=== PATIENT | male | born 1935 | race Caucasian/White ===

== ENCOUNTER 2016-11-15 11:14 | Outpatient (CLI) | payer MEDICARE, BC ==
[2014-08-22 22:51] VITALS: O2SAT 98
== END 2016-11-15 11:15 | disposition home or self-care (01) | DRG 554 ==
LOC: CONVCARE 11:14
PROVIDERS: ATTEND Orthopaedic Surgery
DX: M17.0 Bilateral primary osteoarthritis of knee (principal); M21.161 Varus deformity, not elsewhere classified, right knee; M21.162 Varus deformity, not elsewhere classified, left knee
CPT/HCPCS: 73560

== ENCOUNTER 2016-12-16 05:38 | Inpatient (IN) | payer MEDICARE, BC ==
[2016-12-16] MEDS ORDERED: LACTATED RINGERS 1,000 ML IV ONE (06:00)
[2016-12-16] MEDS: SCOPOLAMINE 1.5MG PATCH TD SCH (06:27)
[2016-12-16] MEDS ORDERED: SODIUM CHLORIDE 20 ML 20 ML ONE (06:53)
[2016-12-16] MEDS ORDERED: LACTATED RINGERS 1,000 ML IV SCH (07:00)
[2016-12-16] MEDS ORDERED: TETRACAINE HCL 1% SOL ONE (07:16)
[2016-12-16] MEDS ORDERED: KETAMINE HYDROCHLORIDE 50 MG/ML SOL ONE (07:19)
[2016-12-16] MEDS ORDERED: HYDROMORPHONE HCL 2 MG/ML 1 ML SOL ONE (07:19)
[2016-12-16] MEDS ORDERED: PROPOFOL 500 MG/50 ML EMU IV ONE ×3 (07:19→09:59)
[2016-12-16] MEDS ORDERED: METOCLOPRAMIDE HYDROCHLORIDE 5 MG/ML SOL ONE (07:19)
[2016-12-16] MEDS ORDERED: MIDAZOLAM 2 MG/2 ML SOL ONE (07:19)
[2016-12-16] MEDS ORDERED: DEXAMETHASONE 20 MG/5 ML (4 MG/ML SOL) ONE (07:19)
[2016-12-16] MEDS ORDERED: ONDANSETRON HCL 4 MG/2 ML SOL ONE (07:19)
[2016-12-16] MEDS ORDERED: LIDOCAINE HCL 1% MPF SOL ONE (07:19)
[2016-12-16] MEDS ORDERED: CEFAZOLIN SODIUM 1 GM PDS ONE (07:40)
[2016-12-16] MEDS ORDERED: PHENYLEPHRINE HYDROCHLORIDE 10 MG/ML SOL ONE (08:56)
[2016-12-16] MEDS: BUPIVACAINE LIPOSOME 20 ML SUS ONE ×4 (09:30→11:05)
[2016-12-16] MEDS ORDERED: FENTANYL CITRATE 50 MCG/ML SOL ONE (10:00)
[2016-12-16] MEDS ORDERED: LABETALOL HYDROCHLORIDE 5 MG/ML SOL IV ONE (10:21)
[2016-12-16] MEDS: TRANEXAMIC ACID 100 MG/ML SOL ONE ×2 (10:25→11:22)
[2016-12-16] MEDS ORDERED: BISACODYL 10 MG SUP PR PRN (11:18)
[2016-12-16] MEDS ORDERED: ONDANSETRON HCL 4 MG/2 ML SOL IV PRN (11:18)
[2016-12-16] MEDS ORDERED: MORPHINE SULFATE 10 MG/ML SOL IM PRN (11:18)
[2016-12-16] MEDS ORDERED: ONDANSETRON 4 MG ODT BU PRN (11:18)
[2016-12-16] MEDS ORDERED: DIAZEPAM 5 MG TAB PO PRN (11:18)
[2016-12-16] MEDS ORDERED: SODIUM CHLORIDE 0.9% 500 ML 500 ML IV PRN (11:18)
[2016-12-16] MEDS ORDERED: ALUMINUM/MAGNESIUM 30 ML SUS PO PRN (11:18)
[2016-12-16] MEDS ORDERED: DIPHENHYDRAMINE 50 MG/ML SOL IV PRN (11:18)
[2016-12-16] MEDS ORDERED: HYDROMORPHONE HCL 2 MG/ML 1 ML SOL IV PRN (11:18)
[2016-12-16] MEDS ORDERED: FLEET ENEMA PR PRN (11:18)
[2016-12-16] MEDS ORDERED: PROPOFOL 10 MG/ML EMU IV ONE (12:07)
[2016-12-16] MEDS ORDERED: KETOROLAC TROMETHAMINE 30 MG/ML SOL ONE (12:18)
[2016-12-16] MEDS ORDERED: DEMEROL ONE (12:20)
[2016-12-16] MEDS: SODIUM CHLORIDE 0.9% FLUSH 10 ML SOL IV SCH ×2 (15:17→19:54)
[2016-12-16] MEDS: CEFAZOLIN (PREMIX) 1 GM SOL IV SCH (16:00)
[2016-12-16] MEDS ORDERED: CEFAZOLIN 1 GM IV SCH ×2 (16:00→16:30)
[2016-12-16] MEDS: DEXTROSE/SALINE 0.45% 1,000 ML IV SCH (19:52)
[2016-12-16] MEDS: SENNOSIDES A AND B 8.6 MG TAB PO SCH (20:18)
[2016-12-16] MEDS: APAP/HYDROCODONE 325/5 TAB PO PRN (23:08)
[2016-12-17] MEDS: CEFAZOLIN (PREMIX) 1 GM SOL IV SCH (00:22)
[2016-12-17] MEDS: SODIUM CHLORIDE 0.9% FLUSH 10 ML SOL IV SCH ×3 (03:10→20:32)
[2016-12-17] MEDS: APAP/HYDROCODONE 325/5 TAB PO PRN ×5 (04:08→20:39)
[2016-12-17] MEDS: DEXTROSE/SALINE 0.45% 1,000 ML IV SCH ×2 (06:24→21:42)
[2016-12-17] MEDS: LEVOTHYROXINE SODIUM 50 MCG TAB PO SCH (06:26)
[2016-12-17 07:17] LABS: MEAN CORPUSCULAR HGB CONC 35.3 gm/dl (32.0-36.0)
[2016-12-17] MEDS: GABAPENTIN 300 MG CAP PO SCH (08:52)
[2016-12-17] MEDS: CYANOCOBALAMIN 1000 MCG TAB PO SCH (08:53)
[2016-12-17] MEDS: ASCORBIC ACID 500 MG TAB PO SCH (08:53)
[2016-12-17] MEDS: ZINC 50 MG PO SCH (08:54)
[2016-12-17] MEDS: RIVAROXABAN 10 MG TAB PO SCH (08:54)
[2016-12-17] MEDS ORDERED: FUROSEMIDE 20mg SOL IV SCH (12:00)
[2016-12-17] MEDS: SENNOSIDES A AND B 8.6 MG TAB PO SCH (20:32)
[2016-12-18] MEDS: LEVOTHYROXINE SODIUM 50 MCG TAB PO SCH ×2 (06:39→06:57)
[2016-12-18] MEDS: SODIUM CHLORIDE 0.9% FLUSH 10 ML SOL IV SCH ×2 (06:40→18:30)
[2016-12-18] MEDS: APAP/HYDROCODONE 325/5 TAB PO PRN ×5 (06:42→21:21)
[2016-12-18 07:32] LABS: MEAN CORPUSCULAR HGB CONC 35.5 gm/dl (32.0-36.0)
[2016-12-18] MEDS: CYANOCOBALAMIN 1000 MCG TAB PO SCH (09:09)
[2016-12-18] MEDS: ASCORBIC ACID 500 MG TAB PO SCH (09:09)
[2016-12-18] MEDS: GABAPENTIN 300 MG CAP PO SCH (09:09)
[2016-12-18] MEDS: RIVAROXABAN 10 MG TAB PO SCH (09:10)
[2016-12-18] MEDS: ZINC 50 MG PO SCH (09:10)
[2016-12-18] MEDS: SODIUM CHLORIDE 0.9% FLUSH 10 ML SOL IV PRN (17:39)
[2016-12-18] MEDS: SENNOSIDES A AND B 8.6 MG TAB PO SCH (21:21)
[2016-12-19] MEDS: APAP/HYDROCODONE 325/5 TAB PO PRN ×6 (02:47→22:31)
[2016-12-19 07:17] LABS: MEAN CORPUSCULAR HGB CONC 34.9 gm/dl (32.0-36.0)
[2016-12-19] MEDS: SCOPOLAMINE 1.5MG PATCH TD SCH (07:19)
[2016-12-19] MEDS: LEVOTHYROXINE SODIUM 50 MCG TAB PO SCH (07:20)
[2016-12-19 08:00] LABS: POTASSIUM 4.2 mMol/L (3.5-5.1)
[2016-12-19] MEDS: SODIUM CHLORIDE 0.9% FLUSH 10 ML SOL IV SCH ×3 (08:33→18:30)
[2016-12-19] MEDS: ZINC 50 MG PO SCH (08:34)
[2016-12-19] MEDS: ASCORBIC ACID 500 MG TAB PO SCH (08:34)
[2016-12-19] MEDS: CYANOCOBALAMIN 1000 MCG TAB PO SCH (08:34)
[2016-12-19] MEDS: RIVAROXABAN 10 MG TAB PO SCH (08:34)
[2016-12-19] MEDS: GABAPENTIN 300 MG CAP PO SCH (08:34)
[2016-12-19] MEDS: MAGNESIUM HYDROXIDE 30 ML SUS PO PRN (08:37)
[2016-12-19 11:57] LABS: ABO O; ANTIBODY SCREEN Negative; RH TYPE Positive
[2016-12-19 11:58] LABS: UNIT TYPE O POSITIVE
[2016-12-19] MEDS: FUROSEMIDE 20mg SOL IV SCH ×2 (15:21→18:31)
[2016-12-19] MEDS: SODIUM CHLORIDE 0.9% FLUSH 10 ML SOL IV PRN (15:21)
[2016-12-19] MEDS: SENNOSIDES A AND B 8.6 MG TAB PO SCH (20:39)
[2016-12-20] MEDS: APAP/HYDROCODONE 325/5 TAB PO PRN ×3 (02:32→08:29)
[2016-12-20] MEDS: SODIUM CHLORIDE 0.9% FLUSH 10 ML SOL IV SCH ×2 (02:33→08:35)
[2016-12-20] MEDS: LEVOTHYROXINE SODIUM 50 MCG TAB PO SCH (07:09)
[2016-12-20 07:22] LABS: BASOPHILS % (AUTO) 1 % (0-3); EOSINOPHILS % (AUTO) 6 % (0-9); HEMATOCRIT 27 % (39-53); MEAN CORPUSCULAR VOLUME 87 fL (80-100); MONOCYTES % (AUTO) 10.3 % (0-12); NEUTROPHILS % (AUTO) 67.4 % (37-80)
[2016-12-20 07:23] LABS: POTASSIUM 4.1 mMol/L (3.5-5.1)
[2016-12-20] MEDS: CYANOCOBALAMIN 1000 MCG TAB PO SCH (08:29)
[2016-12-20] MEDS: GABAPENTIN 300 MG CAP PO SCH (08:29)
[2016-12-20] MEDS: MAGNESIUM HYDROXIDE 30 ML SUS PO PRN (08:29)
[2016-12-20] MEDS: RIVAROXABAN 10 MG TAB PO SCH (08:30)
[2016-12-20] MEDS: ZINC 50 MG PO SCH (08:30)
[2016-12-20] MEDS: ASCORBIC ACID 500 MG TAB PO SCH (08:31)
[2016-12-20 09:08] VITALS: BP 135/66; PULSE 81; RESP 19; TEMP 98.1; O2SAT 94
[2016-12-20] MEDS ORDERED: PATIENT EDUCATION 1 MISC PRN (09:28)
== END 2016-12-20 09:05 | disposition swing bed (61) | DRG 462 ==
LOC: ACUTE CARE 05:38
PROVIDERS: ADMIT Orthopaedic Surgery; ATTEND Orthopaedic Surgery
PROC: 0SRC0J9 Replacement of Right Knee Joint with Synthetic Substitute, Cemented, Open Approach (ICD-10-PCS; 2016-12-16)
PROC: 0SRD0J9 Replacement of Left Knee Joint with Synthetic Substitute, Cemented, Open Approach (ICD-10-PCS; principal; 2016-12-16 08:00)
PROC: 30233N1 Transfusion of Nonautologous Red Blood Cells into Peripheral Vein, Percutaneous Approach (ICD-10-PCS; 2016-12-17)
PROC: F01ZDZZ Gait and/or Balance Assessment (ICD-10-PCS; 2016-12-17)
PROC: F01ZCZZ Transfer Assessment (ICD-10-PCS; 2016-12-17)
PROC: F01ZBZZ Bed Mobility Assessment (ICD-10-PCS; 2016-12-17)
PROC: F07Z9FZ Gait Training/Functional Ambulation Treatment using Assistive, Adaptive, Supportive or Protective Equipment (ICD-10-PCS; 2016-12-17)
PROC: F07L6FZ Therapeutic Exercise Treatment of Musculoskeletal System - Lower Back / Lower Extremity using Assistive, Adaptive, Supportive or Protective Equipment (ICD-10-PCS; 2016-12-17)
PROC: 30233N1 Transfusion of Nonautologous Red Blood Cells into Peripheral Vein, Percutaneous Approach (ICD-10-PCS; 2016-12-19)
DX: M17.0 Bilateral primary osteoarthritis of knee (principal); D62 Acute posthemorrhagic anemia; Z96.653 Presence of artificial knee joint, bilateral; E03.9 Hypothyroidism, unspecified; G25.81 Restless legs syndrome; R09.02 Hypoxemia; R33.9 Retention of urine, unspecified
CPT/HCPCS: 36415; 51798; 73560; 80048; 85025; 85027; 86850; 86900; 86901; 86920; 93005; 93012; 94150; 99070; J0690; J1100; J1170; J1885; J1940; J2175; J2250; J2405; J2765; J3010; P9016; A6232; A6402; J2001; J2704

== ENCOUNTER 2016-12-20 08:11 | Inpatient (IN) | payer MEDICARE, BC ==
[2016-12-20] MEDS ORDERED: PATIENT EDUCATION 1 MISC PRN (10:00)
[2016-12-20] MEDS ORDERED: INFLUENZA HIGH DOSE VACCINE 0.5 ML SUS IM ONE (10:40)
[2016-12-20] MEDS ORDERED: PNEUMOCOCCAL VACCINE 0.5 ML SOL IM ONE (10:40)
[2016-12-20] MEDS ORDERED: MAGNESIUM HYDROXIDE 30 ML SUS PO PRN (11:24)
[2016-12-20] MEDS ORDERED: ONDANSETRON 4 MG ODT BU PRN (11:24)
[2016-12-20] MEDS: APAP/HYDROCODONE 325/5 TAB PO PRN ×3 (12:09→20:54)
[2016-12-20] MEDS ORDERED: BISACODYL 10 MG SUP PR PRN (15:45)
[2016-12-20] MEDS: SENNOSIDES A AND B 8.6 MG TAB PO SCH (20:50)
[2016-12-20] MEDS: TAMSULOSIN HYDROCHLORIDE 0.4 MG CAP PO SCH (20:51)
[2016-12-20] MEDS ORDERED: TAMSULOSIN HYDROCHLORIDE 0.4 MG CAP PO SCH (21:00)
[2016-12-21] MEDS: APAP/HYDROCODONE 325/5 TAB PO PRN ×4 (02:12→18:18)
[2016-12-21] MEDS: LEVOTHYROXINE SODIUM 50 MCG TAB PO SCH (06:30)
[2016-12-21] MEDS: ZINC 50 MG PO SCH (08:54)
[2016-12-21] MEDS: RIVAROXABAN 10 MG TAB PO SCH (08:54)
[2016-12-21] MEDS: CYANOCOBALAMIN 1000 MCG PO SCH (08:54)
[2016-12-21] MEDS: ASCORBIC ACID 500 MG TAB PO SCH (08:54)
[2016-12-21] MEDS: GABAPENTIN 300 MG CAP PO SCH (08:54)
[2016-12-21] MEDS: SENNOSIDES A AND B 8.6 MG TAB PO SCH (21:39)
[2016-12-21] MEDS: TAMSULOSIN HYDROCHLORIDE 0.4 MG CAP PO SCH (21:39)
[2016-12-22] MEDS: APAP/HYDROCODONE 325/5 TAB PO PRN ×4 (03:05→16:48)
[2016-12-22] MEDS: LEVOTHYROXINE SODIUM 50 MCG TAB PO SCH (06:52)
[2016-12-22] MEDS: CYANOCOBALAMIN 1000 MCG PO SCH (08:24)
[2016-12-22] MEDS: GABAPENTIN 300 MG CAP PO SCH (08:25)
[2016-12-22] MEDS: ASCORBIC ACID 500 MG TAB PO SCH (08:25)
[2016-12-22] MEDS: RIVAROXABAN 10 MG TAB PO SCH (08:25)
[2016-12-22] MEDS: ZINC 50 MG PO SCH (08:26)
[2016-12-22] MEDS: TAMSULOSIN HYDROCHLORIDE 0.4 MG CAP PO SCH (21:01)
[2016-12-22] MEDS: SENNOSIDES A AND B 8.6 MG TAB PO SCH (21:01)
[2016-12-23] MEDS: APAP/HYDROCODONE 325/5 TAB PO PRN ×5 (01:08→23:43)
[2016-12-23] MEDS: LEVOTHYROXINE SODIUM 50 MCG TAB PO SCH (06:28)
[2016-12-23] MEDS: CYANOCOBALAMIN 1000 MCG PO SCH (10:39)
[2016-12-23] MEDS: ASCORBIC ACID 500 MG TAB PO SCH (10:40)
[2016-12-23] MEDS: GABAPENTIN 300 MG CAP PO SCH (10:40)
[2016-12-23] MEDS: ZINC 50 MG PO SCH (10:41)
[2016-12-23] MEDS: RIVAROXABAN 10 MG TAB PO SCH (10:41)
[2016-12-23 13:06] LABS: BASOPHILS % (AUTO) 1 % (0-3); EOSINOPHILS % (AUTO) 2 % (0-9); HEMATOCRIT 28 % (39-53); MEAN CORPUSCULAR HGB CONC 34.9 gm/dl (32.0-36.0); MEAN CORPUSCULAR VOLUME 90 fL (80-100); MONOCYTES % (AUTO) 8.4 % (0-12); NEUTROPHILS % (AUTO) 78.4 % (37-80)
[2016-12-23 13:23] LABS: CALCIUM 8.2 mg/dl (8.5-10.1); GLOM FILT RATE 78 mL/min (>60); POTASSIUM 4.3 mMol/L (3.5-5.1); SODIUM 137 mMol/L (136-145)
[2016-12-23] MEDS: SENNOSIDES A AND B 8.6 MG TAB PO SCH (20:14)
[2016-12-23] MEDS: TAMSULOSIN HYDROCHLORIDE 0.4 MG CAP PO SCH (20:14)
[2016-12-24] MEDS: APAP/HYDROCODONE 325/5 TAB PO PRN ×3 (04:48→21:07)
[2016-12-24] MEDS: LEVOTHYROXINE SODIUM 50 MCG TAB PO SCH (07:17)
[2016-12-24] MEDS: GABAPENTIN 300 MG CAP PO SCH (08:59)
[2016-12-24] MEDS: CYANOCOBALAMIN 1000 MCG PO SCH (08:59)
[2016-12-24] MEDS: ASCORBIC ACID 500 MG TAB PO SCH (09:00)
[2016-12-24] MEDS: ZINC 50 MG PO SCH (09:00)
[2016-12-24] MEDS: RIVAROXABAN 10 MG TAB PO SCH (09:00)
[2016-12-24] MEDS: SENNOSIDES A AND B 8.6 MG TAB PO SCH (21:06)
[2016-12-24] MEDS: TAMSULOSIN HYDROCHLORIDE 0.4 MG CAP PO SCH (21:07)
[2016-12-25] MEDS: LEVOTHYROXINE SODIUM 50 MCG TAB PO SCH (06:30)
[2016-12-25] MEDS: CYANOCOBALAMIN 1000 MCG PO SCH (08:45)
[2016-12-25] MEDS: GABAPENTIN 300 MG CAP PO SCH (08:45)
[2016-12-25] MEDS: RIVAROXABAN 10 MG TAB PO SCH (08:46)
[2016-12-25] MEDS: ASCORBIC ACID 500 MG TAB PO SCH (08:46)
[2016-12-25] MEDS: ZINC 50 MG PO SCH (08:46)
[2016-12-25] MEDS: APAP/HYDROCODONE 325/5 TAB PO PRN ×2 (08:49→20:04)
[2016-12-25] MEDS: TAMSULOSIN HYDROCHLORIDE 0.4 MG CAP PO SCH (20:04)
[2016-12-25] MEDS: SENNOSIDES A AND B 8.6 MG TAB PO SCH (20:04)
[2016-12-26] MEDS: LEVOTHYROXINE SODIUM 50 MCG TAB PO SCH (06:50)
[2016-12-26] MEDS: GABAPENTIN 300 MG CAP PO SCH (08:48)
[2016-12-26] MEDS: CYANOCOBALAMIN 1000 MCG PO SCH (08:48)
[2016-12-26] MEDS: RIVAROXABAN 10 MG TAB PO SCH (08:49)
[2016-12-26] MEDS: ZINC 50 MG PO SCH (08:49)
[2016-12-26] MEDS: ASCORBIC ACID 500 MG TAB PO SCH (08:49)
[2016-12-26] MEDS: APAP/HYDROCODONE 325/5 TAB PO PRN ×2 (08:52→20:56)
[2016-12-26 10:35] VITALS: PULSE 89
[2016-12-26] MEDS: SENNOSIDES A AND B 8.6 MG TAB PO SCH (20:57)
[2016-12-26] MEDS: TAMSULOSIN HYDROCHLORIDE 0.4 MG CAP PO SCH (20:57)
[2016-12-27] MEDS: LEVOTHYROXINE SODIUM 50 MCG TAB PO SCH (06:21)
[2016-12-27] MEDS: APAP/HYDROCODONE 325/5 TAB PO PRN (10:55)
[2016-12-27] MEDS: ZINC 50 MG PO SCH (10:55)
[2016-12-27] MEDS: CYANOCOBALAMIN 1000 MCG PO SCH (10:56)
[2016-12-27] MEDS: RIVAROXABAN 10 MG TAB PO SCH (10:57)
[2016-12-27] MEDS: ASCORBIC ACID 500 MG TAB PO SCH (10:57)
[2016-12-27] MEDS: GABAPENTIN 300 MG CAP PO SCH (10:57)
[2016-12-27 13:10] VITALS: RESP 18
[2016-12-27] MEDS: SENNOSIDES A AND B 8.6 MG TAB PO SCH (20:14)
[2016-12-27] MEDS: TAMSULOSIN HYDROCHLORIDE 0.4 MG CAP PO SCH (20:15)
[2016-12-28] MEDS: APAP/HYDROCODONE 325/5 TAB PO PRN ×2 (05:46→15:29)
[2016-12-28] MEDS: LEVOTHYROXINE SODIUM 50 MCG TAB PO SCH (06:10)
[2016-12-28] MEDS: ZINC 50 MG PO SCH (08:38)
[2016-12-28] MEDS: CYANOCOBALAMIN 1000 MCG PO SCH (08:38)
[2016-12-28] MEDS: ASCORBIC ACID 500 MG TAB PO SCH (08:38)
[2016-12-28] MEDS: RIVAROXABAN 10 MG TAB PO SCH (08:38)
[2016-12-28] MEDS: GABAPENTIN 300 MG CAP PO SCH (08:38)
[2016-12-28 10:34] VITALS: BP 129/67; TEMP 97.9; O2SAT 95
== END 2016-12-28 15:40 | disposition home or self-care (01) | DRG 561 ==
LOC: ACUTE CARE 09:10
PROVIDERS: ADMIT Family Medicine; ATTEND Family Medicine
PROC: F07Z9FZ Gait Training/Functional Ambulation Treatment using Assistive, Adaptive, Supportive or Protective Equipment (ICD-10-PCS; principal; 2016-12-20)
PROC: F02Z1ZZ Dressing Assessment (ICD-10-PCS; 2016-12-20)
PROC: F02Z0ZZ Bathing/Showering Assessment (ICD-10-PCS; 2016-12-20)
PROC: F02Z3ZZ Grooming/Personal Hygiene Assessment (ICD-10-PCS; 2016-12-20)
PROC: F01ZDFZ Gait and/or Balance Assessment using Assistive, Adaptive, Supportive or Protective Equipment (ICD-10-PCS; 2016-12-20)
PROC: F01ZBZZ Bed Mobility Assessment (ICD-10-PCS; 2016-12-20)
DX: Z47.1 Aftercare following joint replacement surgery (principal); E03.9 Hypothyroidism, unspecified; Z96.653 Presence of artificial knee joint, bilateral; R33.9 Retention of urine, unspecified; G25.81 Restless legs syndrome
CPT/HCPCS: 36415; 80048; 84484; 85018; 85025; 90662; 90732; 93005; 94762; G0008

== ENCOUNTER 2017-01-28 08:17 | Outpatient (CLI) | payer MEDICARE, BC ==
[2016-12-28 10:34] VITALS: O2SAT 95
== END 2017-01-28 08:18 | disposition home or self-care (01) | DRG 561 ==
LOC: CONVCARE 08:17
PROVIDERS: ATTEND Orthopaedic Surgery
DX: Z47.1 Aftercare following joint replacement surgery (principal); Z96.653 Presence of artificial knee joint, bilateral
CPT/HCPCS: 73562

== ENCOUNTER 2017-12-20 17:37 | Emergency (ER) | payer MEDICARE, BC ==
[2017-12-20] MEDS ORDERED: SODIUM CHLORIDE 0.9% 500 ML 500 ML IV SCH (18:45)
[2017-12-20 18:50] LABS: BASOPHILS % (AUTO) 1 % (0-3); EOSINOPHILS % (AUTO) 0 % (0-9); HEMATOCRIT 39 % (39-53); MEAN CORPUSCULAR VOLUME 92 fL (80-100); MONOCYTES % (AUTO) 12.9 % (0-12); NEUTROPHILS % (AUTO) 65.6 % (37-80)
[2017-12-20 19:06] LABS: ALBUMIN 3.3 gm/dl (3.4-5.0); BILIRUBIN,DIRECT 0.1 mg/dl (0.0-0.2); CALCIUM 8.1 mg/dl (8.5-10.1)
[2017-12-20] MEDS ORDERED: OSELTAMIVIR PHOSPHATE 75 MG CAP PO ONE ×2 (19:45→20:04)
[2017-12-20] MEDS ORDERED: ALBUTEROL/IPRATROPIUM 1 VIAL SOL INH ONE (20:30)
[2017-12-20] MEDS ORDERED: ALBUTEROL/IPRATROPIUM 1 VIAL SOL ONE (20:31)
[2017-12-20 23:10] VITALS: BP 134/82; TEMP 100
[2017-12-20 23:15] VITALS: RESP 18
[2017-12-20 23:18] VITALS: PULSE 85; O2SAT 95
== END 2017-12-20 20:52 | disposition home or self-care (01) | DRG 153 ==
LOC: ED 17:37
DX: J11.1 Influenza due to unidentified influenza virus with other respiratory manifestations (principal); R19.7 Diarrhea, unspecified; R91.1 Solitary pulmonary nodule
CPT/HCPCS: 36415; 71046; 80048; 80076; 85025; 87804; 99285; J7620; A9270-GY

== ENCOUNTER 2018-01-26 10:12 | Outpatient (CLI) | payer MEDICARE, BC ==
[2017-12-20 23:18] VITALS: O2SAT 95
== END 2018-01-26 10:13 | disposition home or self-care (01) | DRG 561 ==
LOC: CONVCARE 10:12
PROVIDERS: ATTEND Orthopaedic Surgery
DX: Z47.1 Aftercare following joint replacement surgery (principal); Z96.653 Presence of artificial knee joint, bilateral
CPT/HCPCS: 73562

== ENCOUNTER 2018-11-16 08:13 | Emergency (ER) | payer BC, MEDICARE, OTHER ==
[2018-11-16 08:41] VITALS: BP 132/70; PULSE 68; RESP 16; TEMP 97.7; O2SAT 96
[2018-11-16] MEDS ORDERED: APAP/HYDROCODONE 1 EACH TABLET PO PRN (08:53)
[2018-11-16] MEDS ORDERED: APAP/HYDROCODONE 1 EACH TABLET ONE (08:58)
== END 2018-11-16 09:50 | disposition home or self-care (01) | DRG 563 ==
LOC: ED 08:13
DX: S42.331A Displaced oblique fracture of shaft of humerus, right arm, initial encounter for closed fracture (principal); W00.0XXA Fall on same level due to ice and snow, initial encounter; E03.9 Hypothyroidism, unspecified
CPT/HCPCS: 73060; 99282; 99283; A9270-GY